=== PATIENT | male | born 1940 | race Caucasian/White ===

== ENCOUNTER 2016-10-27 06:40 | Inpatient (IN) | payer MEDICARE, OTHER ==
[~2016-10-27 06:40] MED LIST: ADVIL200 M1 PO; ASPIR 8181 MG PO; COREG3.125 M1 PO; COZAAR25 M1 PO; OXYCODONE/APAP PO; PLAVIX75 M1 PO; SYNTHROID0.2 MG/TAB PO
[2016-10-28 05:33] LABS: BASO % 0.2 % (0-2); HCT-HEMATOCRIT 37.1 % (36.0-53.5); IMMATURE GRANULOCYTES ABSOLUTE 0.04 tho/cmm (0-0.03); IMMATURE GRANULOCYTES PERCENT 0.3 % (0-0.3); LYMPH % 8.5 % (20-45); LYMPH ABSOLUTE COUNT 1.1 tho/cmm (0.8-4.5); MCH (MEAN CORPUSCULAR HGB) 29.6 pg (28.0-32.0); MCHC MEAN CORPUSCULAR HGB CONC 32.3 % (32.0-36.0); MCV (MEAN CELL VOLUME) 91.4 fl (82.0-96.0); MEAN PLATELET VOLUME 10.1 cmc (9.4-12.4); MONO % 6.8 % (0-12); MONOCYTE ABSOLUTE COUNT 0.9 tho/cmm (0.0-1.2); NEUTROPHIL ABSOLUTE COUNT 11.1 tho/cmm (1.6-8.0); NEUTROPHIL-AUTOMATED 11.1 tho/cmm (1.6-8.0); NEUTROPHILS % 84.2 % (40-80); PLATELET COUNT 218 tho/cmm (150-450); RED BLOOD COUNT 4.06 mil/cmm (4.40-5.70); RED CELL DISTRIBUTION WIDTH 12.8 % (12.4-16.4); WHITE BLOOD COUNT 13.2 tho/cmm (4.0-10.0)
[2016-10-29] MEDS ORDERED: ULTRAM50 M1 PO (09:09)
[2016-10-29] MEDS ORDERED: CELEBREX200 M1 PO (09:12)
[2016-10-29] MEDS ORDERED: ASPIRIN325 M3 PO (09:14)
[2016-10-29] MEDS ORDERED: TYLENOL325 M2 PO (09:14)
== END 2016-10-29 13:50 | DRG 470 ==
LOC: SHSB 06:40 → ORE 08:59 → PACU 11:26 → 5EA 12:02
PROVIDERS: ADMIT Orthopaedic Surgery Sports Medicine
PROC: 0SRC0J9 Replacement of Right Knee Joint with Synthetic Substitute, Cemented, Open Approach (ICD-10-PCS; principal; 2016-10-27)
DX: M17.11 Unilateral primary osteoarthritis, right knee (principal); I69.351 Hemiplegia and hemiparesis following cerebral infarction affecting right dominant side; G62.9 Polyneuropathy, unspecified; E66.9 Obesity, unspecified; E03.9 Hypothyroidism, unspecified; N40.0 Benign prostatic hyperplasia without lower urinary tract symptoms; I69.920 Aphasia following unspecified cerebrovascular disease; I10 Essential (primary) hypertension; E78.00 Pure hypercholesterolemia, unspecified; Z68.37 Body mass index [BMI] 37.0-37.9, adult
CPT/HCPCS: C1713; C1776; J0171; J0690; J1885; J2270; J2795